=== PATIENT | female | born 1995 | race Caucasian/White ===

== ENCOUNTER 2017-05-18 17:38 | Emergency (ER) | payer OTHER ==
[~2017-05-18] VITALS: Ht 170.2 cm; Wt 64.2 kg
[2017-05-18 17:41] VITALS: Ht 170.2 cm; Wt 64.2 kg
[2017-05-18] MEDS ORDERED: MONT1TAB3 PO (18:15)
[2017-05-18] MEDS ORDERED: FEXO1TAB58 PO (18:15)
[2017-05-18] MEDS ORDERED: BCPILLS PO (18:15)
--- NOTE | 2017-05-18 19:17 | DIAGNOSTIC IMAGING REPORT ---
CHEST 2 VIEWS ROUTINE CLINICAL HISTORY: Cough. Flu-like symptoms. COMPARISON STUDY: No previous studies for comparison. FINDINGS: Lung volumes are normal. Lungs are clear. No pneumothorax or pleural effusion is present. Cardiac size is normal. Mediastinal contours are normal. There is no evidence of pulmonary edema. IMPRESSION: No acute cardiopulmonary findings. Electronically signed by: Ben Arroyo M.D. 05/18/2017 7:15 PM Dictated Date/Time: 05/18/2017 7:15 PM
[2017-05-18] MEDS ORDERED: AMOXICILLIN 250 MG CAP PO STA (19:33)
[2017-05-18] MEDS ORDERED: AMOX500T3 PO (19:35)
[2017-05-18 19:41] VITALS: BP 106/66; PULSE 107; TEMP 37.1; O2SAT 96
--- NOTE | 2017-05-18 23:56 | EMERGENCY ROOM VISIT NOTE ---
History Report prepared by Zoe: Rocco Patton Under the Supervision of: Dr. Addison Robles M.D. First contact with patient: 17:49 Chief Complaint: ILLNESS Stated Complaint: FEVER, BODY ACHES,COUGH, SORE THROAT History of Present Illness The patient is a 21 year old female who presents to the Emergency Room with complaints of worsening general illness that started 9 days ago. She rates her discomfort as an 8/10 in severity. She reports that she felt febrile a week ago and has been experiencing a sorethroat, body aches, constant nausea, and headache since. The patient states that she felt as if her symptoms were going to resolve earlier last week, but reports that her symptoms had worsened recently.The patient states that she went to [facility] four days ago and had lab work done. She reports that her strep test was negative. The patient states that she was diagnosed with a virus and sent home. She admits that she has been around someone with a cold because she lives in a dorm. The patient states that she has not been able to eat due to a lack of appetite, but reports she has been able to drink fluids. She reports that she had a fever an hour ago, but admits that this has resolved. She admits that she took Tylenol at 1530. The patient reports that she is currently experiencing a sorethroat, headache, ear pain, and congestion. She notes that the congestion is fairly heavy and has pressure in her sinuses. This is going on 9 days. The patient admits to a history of asthma and denies using her inhaler more than usual. She denies getting a flu shot this year, being in contact with an animal, and recent travel. The patient denies any recent LOC, chills, diaphoresis, visual changes, neck pain, chest pain, breathing difficulties, vomiting, abdominal pain, back pain, melena, hematochezia, urinary symptoms, numbness, weakness, lymphadenopathy, rash, joint swelling, or other complaints. Source of History: patient Onset: 9 days ago Position: other (global) Symptom Intensity: 8/10 Quality: other (global) Timing: worsening Modifying Factors (Relieving): tylenol Associated Symptoms: + fevers, + headache, + sorethroat, + cough, + nausea Review of Systems See HPI for pertinent positives and negatives. A total of ten systems were reviewed and were otherwise negative. Past Medical & Surgical Medical Problems: (1) Asthma Family History Patient reports no known family medical history. Social History Smoking Status: Never Smoker Housing Status: lives with roommate Occupation Status: [employer] student Current/Historical Medications Scheduled Amoxicillin (Amoxil), 500 MG PO TID Control Pills ( Control Pills), 1 TAB PO DAILY Fexofenadine-Pseudoephedrine (Nelda-D 24 Hour Allergy), 1 TAB PO QPM Montelukast Sodium (Singulair), 10 MG PO QPM Allergies Coded Allergies: No Known Allergies (Unverified , 05/18/17) Physical Exam Vital Signs Date Time Temp Pulse Resp B/P (MAP) Pulse Ox O2 Delivery O2 Flow Rate FiO2 05/18/17 19:41 37.1 107 16 106/66 96 Room Air 05/18/17 17:41 37.5 104 18 113/77 96 Room Air Physical Exam GENERAL: Awake, alert, mildly ill appearing, no distress HEAD: Normocephalic, atraumatic. No edema. EYES: Normal conjunctiva. Sclera non-icteric. EARS: Right TM normal. Left TM normal. NOSE: Mild congestion. OROPHARYNX: Lips, tongue, and mucosa unremarkable. No erythema or exudate. NECK: Supple. No nuchal rigidity. FROM. No adenopathy. Negative jolt accentuation test. RESPIRATORY: CTA bilaterally. No wheezes rales or rhonchi. CARDIAC: Borderline tachycardic rate, normal rhythm. ABDOMEN: Soft, non distended. No tenderness to palpation. NEURO: Normal sensorium. SKIN: No rash or jaundice noted Medical Decision & Procedures ER Provider Diagnostic Interpretation: X-ray: Per my interpretation, radiologist review. CHEST 2 VIEWS ROUTINE CLINICAL HISTORY: Cough. Flu-like symptoms. COMPARISON STUDY: No previous studies for comparison. FINDINGS: Lung volumes are normal. Lungs are clear. No pneumothorax or pleural effusion is present. Cardiac size is normal. Mediastinal contours are normal. There is no evidence of pulmonary edema. IMPRESSION: No acute cardiopulmonary findings. Electronically signed by: Ben Arroyo M.D. 05/18/2017 7:15 PM Dictated Date/Time: 05/18/2017 7:15 PM Laboratory Results Test 05/18/17 18:06 Influenza Type A Antigen Neg for Influ A (NEG) Influenza Type B Antigen Neg for Influ B (NEG) Laboratory results reviewed by me Medications Administered Medications (Trade) Dose Ordered Sig/Nikko Route Start Time Stop Time Status Last Admin Dose Admin Amoxicillin (Amoxil Cap) 500 mg NOW STAT PO 05/18/17 19:33 05/18/17 19:34 DC 05/18/17 19:40 500 MG ED Course 1757: The patient was evaluated in room A03. A complete history and physical exam was performed. 1932: Ordered Amoxicillin 500 mg PO. 1935: I reevaluated the patient. Discussed results and discharge instructions: She verbalized understanding and agreement. The patient is ready for discharge. Medical Decision Triage Nursing notes reviewed. The patient's presentation and history were concerning for flulike symptoms. Etiologies such as viral syndrome, otitis, pharyngitis, pneumonia, sinusitis, meningitis, as well as others were entertained. The patient was evaluated. Clinically she looked well. She had a flu test performed and this was negative. Because of her ongoing symptoms she had a chest x-ray performed as well and this did not reveal any evidence of pneumonia. On further reassessment the patient had significant sinus congestion. Tomorrow be the 10th day. She feels like she is getting worse. She has no meningeal findings. Blood work was felt to be unnecessary. I discussed being conservative and treating her with an antibiotic for her ongoing congestion presuming that it is developing into a sinusitis given the duration and escalation of symptoms. The patient felt this was very reasonable. She was given the first dose of amoxicillin here. A prescription was sent to her pharmacy. Tylenol and ibuprofen were discussed as well. The patient feels comfortable with conservative management. If she worsens in any way she will be brought back to the emergency department for reevaluation.I gave my usual and customary discussion regarding this issue. By the evaluation outlined above other emergent etiologies such as those listed in the differential, as well as others, were deemed relatively unlikely. The patient was educated about the findings as listed above. All questions were answered and the patient was pleased with the treatment. Return instructions were outlined and the patient was discharged in stable condition. The patient was referred to [facility] for follow-up for a recheck of the current condition. Medication Reconcilliation Current Medication List: was personally reviewed by me Blood Pressure Screening Patient's blood pressure: Normal blood pressure Impression Primary Impression: Flu-like symptoms Additional Impression: Sinusitis Scribe Attestation The scribe's documentation has been prepared under my direction and personally reviewed by me in its entirety. I confirm that the note above accurately reflects all work, treatment, procedures, and medical decision making performed by me. Departure Information Dispostion Home / Self-Care Prescriptions Amoxicillin (AMOXIL) 500 Mg Tab 500 MG PO TID, #29 TAB Prov: Addison Robles MD 05/18/17 Forms HOME CARE DOCUMENTATION FORM, IMPORTANT VISIT INFORMATION, WORK / SCHOOL INSTRUCTIONS Patient Instructions My [facility] Additional Instructions Amoxicillin 500mg: Take one pill three times daily for 10 days. All antibiotics can cause diarrhea. If this occurs and you feel worse or it does not resolve in 1-2 days follow up with your doctor or return to the Emergency Department as this could be signs of serious underlying problems. Any medication can cause an allergic reaction, stop the pills immediately and return to the ER for rash, hives, breathing difficulties, or swelling. Acetaminophen(Tylenol) may be used for fever or pain. Use 1000mg every six hours as needed. Avoid using more than 4000mg in a 24 hour period. (AND/OR) Ibuprofen(Motrin, Advil) may be used for fever or pain. Use 600mg every six hours as needed. Take with food. Avoid using more than 2400mg in a 24 hour period. Do not use 2400mg per day for more than three consecutive days without physician direction. Prolonged inappropriate use can lead to stomach upset or ulcers. Afrin nasal spray: 2-3 sprays to each nostril twice daily as needed for congestion. Do not use for more than 3-4 days because it can lead to worsening rebound congestion. Albuterol Inhaler: Take 2 puffs four times daily for seven days, then as needed. Rest and drink plenty of fluids. Controlling your fever with Tylenol and Ibuprofen as above will make you feel better. Wash your hands after nose blowing, sneezing, or coughing. Most germs are spread through contact, therefore improper hygiene may result in your close contacts and loved ones becoming ill just like you. Return to the ER for severe headache, neck stiffness, chest pain, difficulty breathing, fevers, vomiting, worsening of your condition, or as needed. Follow up with [facility] this week for a recheck of your current condition. Problem Qualifiers
== END 2017-05-18 19:48 | disposition home or self-care (01) ==
LOC: C.EDB 17:40 → C.EDA 19:48
DX: J02.9 Acute pharyngitis, unspecified (principal); R11.0 Nausea; R51 Headache; R50.9 Fever, unspecified; R05 Cough; J01.90 Acute sinusitis, unspecified; J45.909 Unspecified asthma, uncomplicated; Z79.3 Long term (current) use of hormonal contraceptives